=== PATIENT | male | born 1955 | race Caucasian/White ===

== ENCOUNTER 2019-09-01 02:31 | Emergency (ER) | payer BC ==
--- NOTE | 2019-09-01 03:03 | EDM.PDOC ---
ED HPI GENERAL MEDICAL PROBLEM - General Chief Complaint: Chest Pain Stated Complaint: CHEST PAIN Time Seen by Provider: 09/01/19 02:40 Source of Information: Reports: Patient, Family () History Limitations: Reports: No Limitations - History of Present Illness INITIAL COMMENTS - FREE TEXT/NARRATIVE: Mr. Hunter is a very pleasant 64-year-old man with a past medical history significant for hypertension, dyslipidemia, GERD, anxiety, degenerative disc disease, and coronary artery disease, status post a total of 5 coronary artery stents (3+1+1), with the most recent stent being placed about one year ago. To the patient's knowledge, he has not actually suffered an PR in the past, insofar as his cardiac enzymes have never been elevated, and, to the patient's knowledge, his ECGs have never been remarkable. Due to side effects, he is only partially compliant with his statin. The patient states that he has been feeling poorly for the past 2 weeks, including nausea, watery diarrhea, muscle aches, neck ache, headaches, and numbness of his feet. No recent fever, and he denies increased thirst or increased urine output. The patient now presents to the ED stating that he has been experiencing central chest pressure since around 21:00 last evening, then developed left bicep tightness around 01:00 this morning. He states that his chest pressure radiates up into his neck and down to his epigastrium. He states that his current symptoms are the same as those that resulted in him receiving coronary stents in the past. The patient's PCP is Dr. Nicolas Olmstead. His Assistant Professor is Dr. Jin Perkins. His [employer] Plasma Etcher/pain credit analysis manager is Dr. Manuel Herbert. Left Chest Pain Score (Numeric/FACES): 4 - Related Data Allergies Allergy/AdvReac Type Severity Reaction Status Date / Time No Known Allergies Allergy Verified 07/06/19 13:18 Home Meds: Home Meds Aspirin [Children's Aspirin] 81 mg PO DAILY 07/06/19 [History] Baclofen 10 mg PO DAILY PRN 07/06/19 [History] Clopidogrel Bisulfate [Clopidogrel] 75 mg PO DAILY 07/06/19 [History] Ezetimibe 10 mg PO DAILY 07/06/19 [History] LORazepam 0.5 mg PO BID PRN 07/06/19 [History] Losartan Potassium 50 mg PO DAILY 07/06/19 [History] Metoprolol Succinate 12.5 mg PO BID 07/06/19 [History] Nitroglycerin 0.4 mg SL ASDIRECTED 07/06/19 [History] Pantoprazole Sodium 40 mg PO BID 07/06/19 [History] Pitavastatin Calcium [Livalo] 1 mg PO DAILY 07/06/19 [History] Zolpidem Tartrate 5 mg PO BEDTIME PRN 07/06/19 [History] Ondansetron [Zofran ODT] 4 mg PO Q6H PRN #20 tab.dis 07/11/19 [Rx] Simethicone [Gas Relief] 80 mg PO BID #15 tab.chew 07/11/19 [Rx] Past Medical History HEENT History: Reports: Impaired Vision Other HEENT History: wears glasses Cardiovascular History: Reports: CAD, High Cholesterol, Hypertension Gastrointestinal History: Reports: GERD Genitourinary History: Reports: Chronic Renal Insuffiency Musculoskeletal History: Reports: Back Pain, Chronic (2 DDD), Neck Pain, Chronic Psychiatric History: Reports: Anxiety, Depression, Other (See Below) (Insomnia) - Past Surgical History HEENT Surgical History: Reports: Tonsillectomy Cardiovascular Surgical History: Reports: Coronary Artery Stent (x 5) GI Surgical History: Reports: Appendectomy, Colonoscopy (x 2), EGD (x 2), Other (See Below) (Exploratory laparotomy) Dermatological Surgical History: Reports: Skin Graft Social & Family History - Tobacco Use Smoking Status *Q: Former Smoker Years of Tobacco use: 23 Packs/Tins Daily: 3 Month/Year Tobacco Last Used: Quit 1994 - Caffeine Use Caffeine Use: Reports: Coffee - Alcohol Use Alcohol Use History: Yes Alcohol Use Frequency: Socially - Recreational Drug Use Recreational Drug Use: No - Living Situation & Occupation Living situation: Reports: , with Spouse Occupation: Employed (Fire customer service agent) ED ROS GENERAL - Review of Systems Review Of Systems: Comprehensive ROS is negative, except as noted in HPI. ED EXAM, GENERAL - Physical Exam Exam: See Below Exam Limited By: No Limitations General Appearance: Alert, WD/WN, No Apparent Distress, Anxious Eye Exam: Bilateral Eye: EOMI, Normal Inspection Ears: Normal External Exam, Hearing Grossly Normal Nose: Normal Inspection Throat/Mouth: Normal Inspection, Normal Lips, Normal Voice, No Airway Compromise Head: Atraumatic, Normocephalic Neck: Normal Inspection, Full Range of Motion Respiratory/Chest: No Respiratory Distress, Lungs Clear, Normal Breath Sounds, No Accessory Muscle Use, Chest Non-Tender Cardiovascular: Normal Peripheral Pulses, Regular Rate, Rhythm, No Edema, No Gallop, No JVD, No Murmur, No Rub Peripheral Pulses: 4+: Radial (L), Radial (R) GI/Abdominal: Normal Bowel Sounds, Soft, Non-Tender (including the epigastrium) , No Organomegaly, No Distention, No Abnormal Bruit, No Mass (Male) Exam: Deferred Rectal (Males) Exam: Deferred Back Exam: Normal Inspection, Full Range of Motion, NT Extremities: Normal Inspection, Normal Range of Motion, No Pedal Edema, Normal Capillary Refill Neurological: Alert, Oriented, Normal Cognition, No Motor/Sensory Deficits Psychiatric: Anxious Skin Exam: Warm, Intact, Normal Color, No Rash, Diaphoretic (mild) EKG INTERPRETATION EKG Date: 09/01/19 Time: 02:35 Rhythm: NSR (w/ single PVC) Rate (Beats/Min): 76 [place]: Normal P-Wave: Present QRS: Normal ST-T: Normal QT: Normal Comparison: No Change (07/20/2015) Course - Vital Signs Last Recorded V/S: Last Vital Signs Temp 35.9 C 09/01/19 02:36 Pulse 68 09/01/19 04:40 Resp 14 09/01/19 02:36 BP 124/97 H 09/01/19 04:40 Pulse Ox 100 09/01/19 02:36 - Orders/Labs/Meds Orders: Active Orders 24 hr Category Date Time Status EKG Documentation Completion [RC] STAT Care 09/01/19 02:57 Active Chest 2V [CR] Stat Exams 09/01/19 02:57 Taken Nitroglycerin/D5W [Nitroglycerin 25 MG/D5W 250 ML] Med 09/01/19 04:30 Active 25 mg in 250 ml IV TITRATE Medication Orders Nitroglycerin/Dextrose (Nitroglycerin 25 Mg/D5w 250 Ml) 25 mg in 250 mls @ 3 mls/hr IV TITRATE ALEK; Protocol Last Admin: 09/01/19 04:47 Dose: 5 mcg/min, 3 mls/hr Labs: Laboratory Tests 0109/01/19 09/01/19 Range/Units 03:10 03:10 03:10 WBC 4.97 (4.23-9.07) K/mm3 RBC 4.32 L (4.63-6.08) M/mm3 Hgb 13.2 L D (13.7-17.5) gm/dl Hct 38.6 L (40.1-51.0) % MCV 89.4 (79.0-92.2) fl MCH 30.6 (25.7-32.2) pg MCHC 34.2 (32.2-35.5) g/dl RDW Std Deviation 40.0 (35.1-43.9) fL Plt Count 234 (163-337) K/mm3 MPV 8.8 L (9.4-12.3) fl Neut % (Auto) 46.1 (34.0-67.9) % Lymph % (Auto) 39.4 (21.8-53.1) % [place] % (Auto) 10.9 (5.3-12.2) % Eos % (Auto) 2.8 (0.8-7.0) Baso % (Auto) 0.8 (0.1-1.2) % Neut # (Auto) 2.29 (1.78-5.38) K/mm3 Lymph # (Auto) 1.96 (1.32-3.57) K/mm3 [place] # (Auto) 0.54 (0.30-0.82) K/mm3 Eos # (Auto) 0.14 (0.04-0.54) K/mm3 Baso # (Auto) 0.04 (0.01-0.08) K/mm3 D-Dimer, Quantitative < 0.19 L (0.19-0.50) mg/L Sodium 141 (136-145) mEq/L Potassium 3.6 (3.5-5.1) mEq/L Chloride 105 (98-107) mEq/L Carbon Dioxide 22 (21-32) mEq/L Anion Gap 17.6 H (5-15) BUN 18 (7-18) mg/dL Creatinine 1.3 (0.7-1.3) mg/dL Est Cr Clr Drug Dosing 58.92 mL/min Estimated GFR (MDRD) 56 (>60) mL/min BUN/Creatinine Ratio 13.8 L (14-18) Glucose 119 H (80-115) mg/dL Calcium 8.7 (8.5-10.1) mg/dL Total Bilirubin 0.5 (0.2-1.0) mg/dL AST 26 (15-37) U/L ALT 53 (16-63) U/L Alkaline Phosphatase 60 (46-116) U/L Troponin I < 0.017 (0.00-0.056) ng/mL Total Protein 6.9 (6.4-8.2) g/dl Albumin 3.8 (3.4-5.0) g/dl Globulin 3.1 gm/dL Albumin/Globulin Ratio 1.2 (1-2) 09/01/19 Range/Units 04:35 WBC (4.23-9.07) K/mm3 RBC (4.63-6.08) M/mm3 Hgb (13.7-17.5) gm/dl Hct (40.1-51.0) % MCV (79.0-92.2) fl MCH (25.7-32.2) pg MCHC (32.2-35.5) g/dl RDW Std Deviation (35.1-43.9) fL Plt Count (163-337) K/mm3 MPV (9.4-12.3) fl Neut % (Auto) (34.0-67.9) % Lymph % (Auto) (21.8-53.1) % [place] % (Auto) (5.3-12.2) % Eos % (Auto) (0.8-7.0) Baso % (Auto) (0.1-1.2) % Neut # (Auto) (1.78-5.38) K/mm3 Lymph # (Auto) (1.32-3.57) K/mm3 [place] # (Auto) (0.30-0.82) K/mm3 Eos # (Auto) (0.04-0.54) K/mm3 Baso # (Auto) (0.01-0.08) K/mm3 D-Dimer, Quantitative (0.19-0.50) mg/L Sodium (136-145) mEq/L Potassium (3.5-5.1) mEq/L Chloride (98-107) mEq/L Carbon Dioxide (21-32) mEq/L Anion Gap (5-15) BUN (7-18) mg/dL Creatinine (0.7-1.3) mg/dL Est Cr Clr Drug Dosing mL/min Estimated GFR (MDRD) (>60) mL/min BUN/Creatinine Ratio (14-18) Glucose (80-115) mg/dL Calcium (8.5-10.1) mg/dL Total Bilirubin (0.2-1.0) mg/dL AST (15-37) U/L ALT (16-63) U/L Alkaline Phosphatase (46-116) U/L Troponin I < 0.017 (0.00-0.056) ng/mL Total Protein (6.4-8.2) g/dl Albumin (3.4-5.0) g/dl Globulin gm/dL Albumin/Globulin Ratio (1-2) Meds: Medications Generic Name Dose Route Start Last Admin Trade Name Freq PRN Reason Stop Dose Admin Nitroglycerin/Dextrose 25 mg in 250 mls @ 3 mls/hr 09/01/19 04:30 09/01/19 04 :47 Nitroglycerin 25 Mg/D5w 250 Ml IV 5 mcg/min TITRATE ALEK 3 mls/hr Administration Protocol 5 MCG/MIN Discontinued Medications Generic Name Dose Route Start Last Admin Trade Name Freq PRN Reason Stop Dose Admin Hydromorphone HCl 1 mg 09/01/19 03:07 09/01/19 03:37 Dilaudid IVPUSH 09/01/19 03:08 1 mg ONETIME ONE Administration Metoprolol Tartrate 5 mg 09/01/19 03:08 09/01/19 03:42 Lopressor IVPUSH 09/01/19 03:09 5 mg ONETIME ONE Administration Metoprolol Tartrate 5 mg 09/01/19 04:21 09/01/19 04:40 Lopressor IVPUSH 09/01/19 04:22 5 mg ONETIME ONE Administration Ondansetron HCl 4 mg 09/01/19 03:07 09/01/19 03:34 Zofran IVPUSH 09/01/19 03:08 4 mg ONETIME ONE Administration - Re-Assessments/Exams Free Text/Narrative Re-Assessment/Exam: 09/01/19 02:58 The patient's presentation is very concerning for angina, particularly since his symptoms are the same as prior presentations (at other facilities) that resulted in the patient receiving coronary artery stents. The patient's ECG, however, does not show any acute ischemic changes or even T-wave inversions despite him having active chest pain. This may be consistent, however, as the patient reports that he does not believe that he has ever had an elevated cardiac enzyme or PR. It is not clear to me, however, what would have prompted his Assistant Professor to have taken him to the [employer] [facility] in the past, with a negative workup. For today's purposes, I have ordered a standard cardiac evaluation, and will be calling [place] no matter what the results. In the meantime, the patient will be given some IV Dilaudid, IV Zofran, and IV Lopressor. 09/01/19 04:03 2-view chest radiograph appears to be grossly normal. The cardiac silhouette is within normal limits. No pulmonary vascular congestion. No pleural effusions. No focal infiltrate. No pneumothorax. Formal read per the Radiologist pending. 09/01/19 04:05 I have pushed the chest x-ray images to [facility]. 09/01/19 04:06 The patient's CBC is remarkable for an H/H slightly depressed at 13.2/38.6, with the remainder of his CBC being unremarkable. His CMP is remarkable for an anion gap slightly elevated at 17.6, but with a normal bicarbonate of 22. His blood glucose is mildly elevated at 119, with the remainder of his CMP being normal. His troponin is undetectably low. His D-dimer is undetectably low. I will contact [facility] Call. 09/01/19 04:27 Case discussed with Chelsea at [facility] One call at 04:09. Case then discussed with Dr. Patterson, Assistant Professor at [facility], at 04 :14. He agreed that the patient should be transferred, however, they do not have a bed available at this time. We agreed that the patient would be kept here in the ED until a bed becomes available. They will notify us when one becomes available. In the meantime, he does not object to my continuing to give the patient Lopressor, and suggested that I give him a low dose glycerin drip. He had no other recommendations at this time. The above was discussed with the patient and his , who are agreeable. In addition to additional Lopressor and the nitroglycerin drip, I have also ordered a repeat troponin. 09/01/19 04:[address] [facility] that another option would be to have the patient transferred to their ED and wait in their ED until a bed becomes available. This was discussed with the patient, and he would actually prefer that. 09/01/19 04:[address] Ingram, Emergency Physician at [facility], at 04:39. He accepted the patient for transfer to their ED. Departure - Departure Time of Disposition: 04:42 Disposition: DC/Tfer to Acute Hospital 02 Reason for Transfer *Q: Other Condition: Good Clinical Impression: Chest pressure Referrals: Nicolas Moran MD [Primary Care Provider] - Jin Perkins MD [Ordering Only Provider] - Manuel Herbert MD [Ordering Only Provider] - Forms: ED Department Discharge Sepsis Event Note - Evaluation Sepsis Screening Result: No Definite Risk - Focused Exam Vital Signs: Vital Signs Temp Pulse Pulse Resp BP BP Pulse Ox 09/01/19 04:40 68 124/97 H 09/01/19 03:42 81 120/89 09/01/19 02:36 35.9 C 79 14 140/93 H 100 Date Exam was Performed: 09/01/19 Time Exam was Performed: 05:24 - My Orders Last 24 Hours: My Active Orders 09/01/19 02:57 EKG Documentation Completion [RC] STAT Chest 2V [CR] Stat 09/01/19 04:30 Nitroglycerin/D5W [Nitroglycerin 25 MG/D5W 250 ML] 25 mg in 250 ml IV TITRATE - Assessment/Plan Last 24 Hours: My Active Orders 09/01/19 02:57 EKG Documentation Completion [RC] STAT Chest 2V [CR] Stat 09/01/19 04:30 Nitroglycerin/D5W [Nitroglycerin 25 MG/D5W 250 ML] 25 mg in 250 ml IV TITRATE
[2019-09-01] MEDS ORDERED: Ondansetron 4 MG/2 ML SDV IVPUSH ONE (03:07)
[2019-09-01] MEDS ORDERED: HYDROmorphone 1 MG/ML Syringe IVPUSH ONE (03:07)
[2019-09-01] MEDS ORDERED: Metoprolol Tartrate 5 MG/5 ML SDV IVPUSH ONE ×2 (03:08→04:21)
[2019-09-01] MEDS ORDERED: Nitroglycerin/D5W 25 MG/250 ML BOTTLE IV SCH (04:30)
[2019-09-01 04:43] VITALS: BP 124/97; PULSE 68
--- NOTE | 2019-09-01 07:34 | CR ---
Chest: Two views of the chest were obtained. Comparison: Prior chest x-ray of 07/20/15. Heart size and mediastinum are normal. Lungs are clear. Bony structures show slight degenerative change within the spine. Impression: 1. Nothing acute is seen on two-view chest x-ray. Diagnostic code #1 This report was dictated in [place] Standard Time
== END 2019-09-01 05:20 ==
LOC: JD.ED 02:31
DX: R07.89 Other chest pain (principal); I12.9 Hypertensive chronic kidney disease with stage 1 through stage 4 chronic kidney disease, or unspecified chronic kidney disease; N18.9 Chronic kidney disease, unspecified; Z87.891 Personal history of nicotine dependence; Z79.82 Long term (current) use of aspirin
CPT/HCPCS: 36415; 71046; 80053; 84484; 85025; 85379; 93005; 96365; 96375; 99285; J1170; J2405; J3490; 93010; 96376

== ENCOUNTER 2021-03-02 19:09 | Emergency (ER) | payer BC ==
[2021-03-02 19:23] VITALS: BP 140/92; PULSE 81
--- NOTE | 2021-03-02 19:35 | EDM.PDOC ---
ED HPI GENERAL MEDICAL PROBLEM - General Chief Complaint: Upper Extremity Injury/Pain Stated Complaint: INJURIED HANDS FELL ON BOAT RAMP IN [place] Time Seen by Provider: 03/02/21 19:25 Source of Information: Reports: Patient, RN Notes Reviewed History Limitations: Reports: No Limitations - History of Present Illness INITIAL COMMENTS - FREE TEXT/NARRATIVE: Patient is a 65-year-old male who presents to the ER for a left wrist injury and a right hand injury. Patient was loading his boat, in [place] and the dock was somewhat slimy, and he ended up slipping on the dock. He caught himself with an outstretched left wrist, and then landed on his right hand. He is having pain in his left wrist, and he is not been able to move his wrist in any range of motion at all without having extreme pain. He does have some pain in his right hand, mostly to his right pinky and some soreness to his right wrist as well. He did not take any pain medications prior to coming to the ER. He has not had any injuries to these area prior to today's injury. Patient denies any other sick-like symptoms, fever/chills, cough/shortness of breath, nausea/vomiting/diarrhea. Left Wrist Pain Score (Numeric/FACES): 5 - Related Data Allergies Allergy/AdvReac Type Severity Reaction Status Date / Time No Known Allergies Allergy Verified 03/02/21 19:23 Home Meds: Home Meds Clopidogrel Bisulfate [Clopidogrel] 75 mg PO DAILY 07/06/19 [History] Ezetimibe 10 mg PO DAILY 07/06/19 [History] LORazepam 0.5 mg PO BID PRN 07/06/19 [History] Metoprolol Succinate 12.5 mg PO BID 07/06/19 [History] Nitroglycerin 0.4 mg SL ASDIRECTED 07/06/19 [History] Pantoprazole Sodium 40 mg PO BID 07/06/19 [History] Zolpidem Tartrate 5 mg PO BEDTIME PRN 07/06/19 [History] Acetaminophen/oxyCODONE [Percocet 325-5 MG] 1 each PO Q6H PRN #20 tab 03/02/21 [Rx] Past Medical History HEENT History: Reports: Impaired Vision Other HEENT History: wears glasses Cardiovascular History: Reports: CAD, High Cholesterol, Hypertension Respiratory History: Reports: None Other Respiratory History: wears CPAP Gastrointestinal History: Reports: GERD Genitourinary History: Reports: Chronic Renal Insuffiency Other Genitourinary History: kidney stones, CKD TELE[employer] MAINTENANCE MECHANIC History: Reports: None Musculoskeletal History: Reports: Back Pain, Chronic, Neck Pain, Chronic Other Musculoskeletal History: degerenative disc disease Neurological History: Reports: Migraines Psychiatric History: Reports: Anxiety, Depression, Other (See Below) Other Psychiatric History: insomnia, defect Endocrine/Metabolic History: Reports: None Hematologic History: Reports: None Immunologic History: Reports: None Oncologic (Cancer) History: Reports: None Dermatologic History: Reports: None - Past Surgical History HEENT Surgical History: Reports: Tonsillectomy Cardiovascular Surgical History: Reports: Coronary Artery Stent Respiratory Surgical History: Reports: None GI Surgical History: Reports: Appendectomy, Colonoscopy, EGD, Other (See Below) Male Surgical History: Reports: None Endocrine Surgical History: Reports: None Neurological Surgical History: Reports: None Musculoskeletal Surgical History: Reports: None Oncologic Surgical History: Reports: None Dermatological Surgical History: Reports: Skin Graft Social & Family History - Tobacco Use Tobacco Use Status *Q: Never Tobacco User Second Hand Smoke Exposure: No - Caffeine Use Caffeine Use: Reports: Coffee - Recreational Drug Use Recreational Drug Use: No - Living Situation & Occupation Living situation: Reports: , with Spouse Occupation: Employed (Fire diesel service apprentice) Review of Systems - Review of Systems Review Of Systems: Comprehensive ROS is negative, except as noted in HPI. ED EXAM, GENERAL - Physical Exam Exam: See Below Exam Limited By: No Limitations General Appearance: Alert, WD/WN, No Apparent Distress Respiratory/Chest: No Respiratory Distress, Lungs Clear, Normal Breath Sounds, No Accessory Muscle Use, Chest Non-Tender Cardiovascular: Normal Peripheral Pulses, Regular Rate, Rhythm, No Edema Peripheral Pulses: 2+: Radial (L), Radial (R) Extremities: Normal Capillary Refill, Limited Range of Motion (of left wrist d/t pain), Other (there is some bruising to the right pinky) Neurological: Alert, Oriented, Normal Cognition, No Motor/Sensory Deficits Psychiatric: Normal Affect, Normal Mood Skin Exam: Warm, Dry, Intact, Normal Color, No Rash, Ecchymosis (to right pinky finger) ED TRAUMA EXTREMITY PROCEDURES - Splinting Left Upper Extremity Splint Site: left wrist Pre-Procedure NV Status: Normal Post-Procedure NV Status: Normal Splint Material: Fiberglass Splint Design: Gutter (ulnar gutter short arm) Applied & Form Fitted By: Provider, Nurse Provider Post-Splint Application NV Check: NV Status Normal, Good Position Complications: No Course - Vital Signs Last Recorded V/S: Last Vital Signs Temp 98.9 F 03/02/21 19:22 Pulse 81 03/02/21 19:22 Resp 20 03/02/21 19:22 BP 140/92 H 03/02/21 19:22 Pulse Ox 98 03/02/21 19:22 - Orders/Labs/Meds Orders: Active Orders 24 hr Category Date Time Status Hand Comp Min 3V Rt [CR] Stat Exams 03/02/21 19:29 Ordered Wrist Comp Min 3V Lt [CR] Stat Exams 03/02/21 19:29 Ordered DME for Discharge [COMM] Routine Oth 03/02/21 21:57 Ordered Meds: Medications Discontinued Medications Generic Name Dose Route Start Last Admin Trade Name Jitendra PRN Reason Stop Dose Admin Hydromorphone HCl 1 mg 03/02/21 21:12 03/02/21 21:30 Hydromorphone 1 Mg/Ml Syringe IM 03/02/21 21:13 1 mg ONETIME ONE Administration - Re-Assessments/Exams Free Text/Narrative Re-Assessment/Exam: 03/02/21 19:35 Patient presents to the ER for left wrist injury and his right hand injury, we will go ahead and get x-rays of both areas for evaluation. It does appear as if he may have broken his left wrist just on exam alone. He is not requesting anything for pain meds at this time. But will let us know if he should require any pain medication. 03/02/21 21:12 X-rays have been done, hand x-ray does not demonstrate any obvious fracture or bony abnormality. Left wrist x-ray does demonstrate an impacted, slightly posterior angulation. Patient will have splinting done and I have ordered 1 mg Dilaudid for pain management. Departure - Departure Time of Disposition: 21:14 Disposition: Home, Self-Care 01 Condition: Good Clinical Impression: Distal radius fracture, left Qualifiers: Encounter type: initial encounter Fracture type: closed Fracture morphology: unspecified fracture morphology Qualified Code(s): S52.502A - Unspecified fracture of the lower end of left radius, initial encounter for closed fracture - Discharge Information *PRESCRIPTION DRUG MONITORING PROGRAM REVIEWED*: Yes *COPY OF PRESCRIPTION DRUG MONITORING REPORT IN PATIENT EDGARD: No Prescriptions: Acetaminophen/oxyCODONE [Percocet 325-5 MG] 1 each PO Q6H PRN #20 tab PRN Reason: Pain Instructions: Cast or Splint Care, Adult, [id number], Wrist Fracture Treated With Immobilization, [id number] Referrals: Nicolas Moran MD [Primary Care Provider] - Forms: ED Department Discharge, ED Return to Work/School Form Additional Instructions: You have been evaluated in the ED for your left wrist and right hand injuries. Your x-ray demonstrated a fracture of your distal radius of your left wrist. Your hand x-ray did not demonstrate any acute fracture or other bony abnormalities apparent at tonight's visit. Please use ice as tolerated to the affected area. You may elevate the affected area to provide further relief from swelling. You may take Tylenol 500 mg or ibuprofen 600mg q6 hrs for pain relief. Please do so until you have a tolerable level of pain with activity. Do not exceed 4000mg Tylenol, Do not exceed 3200mg ibuprofen in a 24 hour time period. You were given a prescription for a strong pain medication, Oxycodone/acetaminophen 5/325, please take 1 tab every 6 hours as needed for pain not relieved by Tylenol or ibuprofen alone. Please note this does contain Tylenol in it, so do not take more than 4000 mg in a 24-hour time span. These medications can be addictive, so please take as few as possible to achieve adequate pain control. These meds can also be quite constipating, recommend that you increase your oral fluid intake and take a stool softener like MiraLAX while taking these medications. Please call Ortho for follow-up and further evaluation Dr. Anderson is our orthopedic surgeon, his office number is [phone]. Please call and set up an appointment as soon as possible for further management. Please return to ED if your symptoms should change or worsen. Sepsis Event Note (ED) - Evaluation Sepsis Screening Result: No Definite Risk - Focused Exam Vital Signs: Vital Signs Temp Pulse Resp BP Pulse Ox 03/02/21 19:22 98.9 F 81 20 140/92 H 98 - My Orders Last 24 Hours: My Active Orders 03/02/21 19:29 Hand Comp Min 3V Rt [CR] Stat Wrist Comp Min 3V Lt [CR] Stat 03/02/21 21:57 DME for Discharge [COMM] Routine - Assessment/Plan Last 24 Hours: My Active Orders 03/02/21 19:29 Hand Comp Min 3V Rt [CR] Stat Wrist Comp Min 3V Lt [CR] Stat 03/02/21 21:57 DME for Discharge [COMM] Routine
[2021-03-02] MEDS ORDERED: HYDROmorphone 1 MG/ML Syringe IM ONE (21:12)
--- NOTE | 2021-03-03 09:32 | CR ---
Left wrist: 3 views left wrist were obtained. Comparison: Prior left wrist exam of 07/25/19. Acute fracture is identified within the distal radius involving mostly the metaphysis. There is posterior impaction as well as mild posterior displacement and dorsal tilt of the distal radial articular margin. Minimal irregularity within the ulnar styloid process is seen probably due to minimal avulsion injury. Soft tissue swelling is noted. Mild degenerative change is scattered within the hand. Impression: 1. Mildly displaced and angulated distal left radial fracture with questionable small fracture within the ulnar styloid process. 2. Degenerative change within the hand. 3. Soft tissue swelling. Diagnostic code #3
--- NOTE | 2021-03-03 09:33 | CR ---
Right hand: 3 views of the right hand were obtained. Comparison: No prior hand exam is available. Scattered joint space narrowing is seen within the MCP, DIP and PIP joints. Joint space narrowing is also noted within the thumb. Small calcification is noted within or next to the triangular cartilage within the wrist which appears to be old. No acute fracture or dislocation is seen. Impression: 1. Diffuse degenerative change as noted above. 2. Nothing acute is seen on right hand exam. Diagnostic code #2
== END 2021-03-02 22:10 | disposition home or self-care (01) ==
LOC: JD.ED 19:09
DX: S52.502A Unspecified fracture of the lower end of left radius, initial encounter for closed fracture (principal); S60.051A Contusion of right little finger without damage to nail, initial encounter; I25.10 Atherosclerotic heart disease of native coronary artery without angina pectoris; I12.9 Hypertensive chronic kidney disease with stage 1 through stage 4 chronic kidney disease, or unspecified chronic kidney disease; N18.9 Chronic kidney disease, unspecified; K21.9 Gastro-esophageal reflux disease without esophagitis; Z79.02 Long term (current) use of antithrombotics/antiplatelets; Z79.899 Other long term (current) drug therapy; W01.0XXA Fall on same level from slipping, tripping and stumbling without subsequent striking against object, initial encounter
CPT/HCPCS: 29125; 73110; 73130; 96372; 99283; J1170

== ENCOUNTER 2021-05-24 11:17 | Emergency (ER) | payer BC ==
[2021-05-24 11:38] VITALS: BP 133/85; PULSE 81
--- NOTE | 2021-05-24 14:09 | CR ---
Chest: Frontal view of the chest was obtained. Comparison: Prior chest x-ray of 05/01/21. Heart size and mediastinum are normal. Lungs are clear with no acute parenchymal change. Bony structures show nothing acute. Impression: 1. Nothing acute is seen on frontal chest x-ray. Diagnostic code #1
--- NOTE | 2021-05-24 16:09 | EDM.PDOC ---
ED HPI GENERAL MEDICAL PROBLEM - General Chief Complaint: Respiratory Problem Stated Complaint: SOB WAS COVID Time Seen by Provider: 05/24/21 12:30 Source of Information: Reports: Patient History Limitations: Reports: No Limitations - History of Present Illness INITIAL COMMENTS - FREE TEXT/NARRATIVE: Patient is a 65-year-old male with a past medical history of coronary artery d isease presenting with a chief complaint of shortness of breath and chest pressure. Patient was referred by outpatient clinic for the symptoms. Patient states he has been experiencing symptoms intermittently for the past 1 week. Patient had COVID-19 infection about 1 month ago. He been doing better until about 1 week ago. He states his symptoms seem to occur primarily with exertion. Symptoms do improve with rest. Patient reports chest pressure in the substernal area with radiation to the left shoulder. Denies any cough, fevers, nausea, vomiting, diaphoresis. Symptoms do not occur at rest. Patient has not taken any medications symptoms. He states nitroglycerin makes him extremely hypotensive. Middle Chest Pain Score (Numeric/FACES): 2 - Related Data Allergies Allergy/AdvReac Type Severity Reaction Status Date / Time No Known Allergies Allergy Verified 05/24/21 11:37 Home Meds: Home Meds Clopidogrel Bisulfate [Clopidogrel] 75 mg PO DAILY 07/06/19 [History] Ezetimibe 10 mg PO DAILY 07/06/19 [History] LORazepam 0.5 mg PO BID PRN 07/06/19 [History] Metoprolol Succinate 12.5 mg PO BID 07/06/19 [History] Nitroglycerin 0.4 mg SL ASDIRECTED 07/06/19 [History] Pantoprazole Sodium 40 mg PO BID 07/06/19 [History] Zolpidem Tartrate 5 mg PO BEDTIME PRN 07/06/19 [History] Acetaminophen/oxyCODONE [Percocet 325-5 MG] 1 each PO Q6H PRN #20 tab 03/02/21 [Rx] Dulaglutide [Trulicity] 1.5 mg SUBCUT WEEKLY 05/24/21 [History] Past Medical History HEENT History: Reports: Impaired Vision Other HEENT History: wears glasses Cardiovascular History: Reports: CAD, High Cholesterol, Hypertension Respiratory History: Reports: None Other Respiratory History: wears CPAP Gastrointestinal History: Reports: GERD Genitourinary History: Reports: Chronic Renal Insuffiency Other Genitourinary History: kidney stones, CKD [employer] History: Reports: None Musculoskeletal History: Reports: Back Pain, Chronic, Neck Pain, Chronic Other Musculoskeletal History: degerenative disc disease Neurological History: Reports: Migraines Psychiatric History: Reports: Anxiety, Depression, Other (See Below) Other Psychiatric History: insomnia, defect Endocrine/Metabolic History: Reports: None Hematologic History: Reports: None Immunologic History: Reports: None Oncologic (Cancer) History: Reports: None Dermatologic History: Reports: None - Infectious Disease History Infectious Disease History: Reports: Novel Coronavirus - Past Surgical History HEENT Surgical History: Reports: Tonsillectomy Cardiovascular Surgical History: Reports: Coronary Artery Stent Respiratory Surgical History: Reports: None GI Surgical History: Reports: Appendectomy, Colonoscopy, EGD, Other (See Below) Male Surgical History: Reports: None Endocrine Surgical History: Reports: None Neurological Surgical History: Reports: None Musculoskeletal Surgical History: Reports: None Oncologic Surgical History: Reports: None Dermatological Surgical History: Reports: Skin Graft Social & Family History - Tobacco Use Tobacco Use Status *Q: Never Tobacco User Second Hand Smoke Exposure: No - Caffeine Use Caffeine Use: Reports: Coffee - Living Situation & Occupation Living situation: Reports: , with Spouse Occupation: Employed (Fire biomedical service engineer) ED ROS GENERAL - Review of Systems Review Of Systems: See Below Free Text/Narrative/Comment: In addition to that documented in the HPI above, the additional ROS was obtained: Constitutional: Denies fevers or chills Eyes: Denies vision changes ENMT: Denies sore throat CV: Per HPI Resp: Per HPI GI: Denies vomiting or diarrhea : Denies painful urination MSK: Denies recent trauma Skin: Denies new rashes Neuro: Denies new numbness or tingling or weakness Endocrine: Denies unexpected weight loss Heme: Denies bleeding disorders ED EXAM, GENERAL - Physical Exam Exam: See Below Free Text/Narrative:: I have reviewed the triage vital signs Const: Well nourished, well developed, appears stated age Eyes: Pupils Equal and reactive to light bilaterally, no conjunctival injection HENT: No signs of trauma or swelling, Neck supple without meningismus CV: Regular Rate Rhythm, Warm, well-perfused extremities RESP: Unlabored respiratory effort GI: soft, non-tender, non-distended, no masses MSK: No gross deformities appreciated Skin: Warm, dry. No rashes Neuro: Alert, ichthyology teacher II-XII grossly intact. Sensation and motor function of extremities grossly intact. Psych: Appropriate mood and affect. Course - Vital Signs Last Recorded V/S: Last Vital Signs Temp 36.9 C 05/24/21 11:32 Pulse 81 05/24/21 11:32 Resp 20 05/24/21 11:32 BP 133/85 05/24/21 11:32 Pulse Ox 100 05/24/21 11:32 - Orders/Labs/Meds Labs: Laboratory Tests 05/24/21 05/24/21 05/24/21 Range/Units 12:20 12:20 12:20 WBC 5.94 (4.23-9.07) K/mm3 RBC 4.26 L (4.63-6.08) M/mm3 Hgb 13.0 L (13.7-17.5) gm/dl Hct 39.4 L (40.1-51.0) % MCV 92.5 H (79.0-92.2) fl MCH 30.5 (25.7-32.2) pg MCHC 33.0 (32.2-35.5) g/dl RDW Std Deviation 42.9 (35.1-43.9) fL Plt Count 205 D (163-337) K/mm3 MPV 9.1 L (9.4-12.3) fl Neut % (Auto) 55.9 (34.0-67.9) % Lymph % (Auto) 33.2 (21.8-53.1) % Randall % (Auto) 8.9 (5.3-12.2) % Eos % (Auto) 1.3 (0.8-7.0) Baso % (Auto) 0.5 (0.1-1.2) % Neut # (Auto) 3.32 (1.78-5.38) K/mm3 Lymph # (Auto) 1.97 (1.32-3.57) K/mm3 Randall # (Auto) 0.53 (0.30-0.82) K/mm3 Eos # (Auto) 0.08 (0.04-0.54) K/mm3 Baso # (Auto) 0.03 (0.01-0.08) K/mm3 D-Dimer, Quantitative < 0.19 L (0.19-0.50) mg/L Sodium 138 (136-145) mEq/L Potassium 3.4 L (3.5-5.1) mEq/L Chloride 104 (98-107) mEq/L Carbon Dioxide 26 (21-32) mEq/L Anion Gap 11.4 (5-15) BUN 13 (7-18) mg/dL Creatinine 1.3 (0.7-1.3) mg/dL Est Cr Clr Drug Dosing 58.16 mL/min Estimated GFR (MDRD) 56 (>60) mL/min BUN/Creatinine Ratio 10.0 L (14-18) Glucose 98 (70-99) mg/dL Calcium 8.5 (8.5-10.1) mg/dL Total Bilirubin 0.5 (0.2-1.0) mg/dL AST 27 (15-37) U/L ALT 45 (16-63) U/L Alkaline Phosphatase 61 (46-116) U/L Troponin I < 0.017 (0.00-0.056) ng/mL Total Protein 7.1 (6.4-8.2) g/dl Albumin 3.8 (3.4-5.0) g/dl Globulin 3.3 gm/dL Albumin/Globulin Ratio 1.2 (1-2) 05/24/21 Range/Units 15:30 WBC (4.23-9.07) K/mm3 RBC (4.63-6.08) M/mm3 Hgb (13.7-17.5) gm/dl Hct (40.1-51.0) % MCV (79.0-92.2) fl MCH (25.7-32.2) pg MCHC (32.2-35.5) g/dl RDW Std Deviation (35.1-43.9) fL Plt Count (163-337) K/mm3 MPV (9.4-12.3) fl Neut % (Auto) (34.0-67.9) % Lymph % (Auto) (21.8-53.1) % Randall % (Auto) (5.3-12.2) % Eos % (Auto) (0.8-7.0) Baso % (Auto) (0.1-1.2) % Neut # (Auto) (1.78-5.38) K/mm3 Lymph # (Auto) (1.32-3.57) K/mm3 Randall # (Auto) (0.30-0.82) K/mm3 Eos # (Auto) (0.04-0.54) K/mm3 Baso # (Auto) (0.01-0.08) K/mm3 D-Dimer, Quantitative (0.19-0.50) mg/L Sodium (136-145) mEq/L Potassium (3.5-5.1) mEq/L Chloride (98-107) mEq/L Carbon Dioxide (21-32) mEq/L Anion Gap (5-15) BUN (7-18) mg/dL Creatinine (0.7-1.3) mg/dL Est Cr Clr Drug Dosing mL/min Estimated GFR (MDRD) (>60) mL/min BUN/Creatinine Ratio (14-18) Glucose (70-99) mg/dL Calcium (8.5-10.1) mg/dL Total Bilirubin (0.2-1.0) mg/dL AST (15-37) U/L ALT (16-63) U/L Alkaline Phosphatase (46-116) U/L Troponin I < 0.017 (0.00-0.056) ng/mL Total Protein (6.4-8.2) g/dl Albumin (3.4-5.0) g/dl Globulin gm/dL Albumin/Globulin Ratio (1-2) Departure - Departure Time of Disposition: 16:09 Disposition: Home, Self-Care 01 Clinical Impression: Chest pain - Discharge Information *PRESCRIPTION DRUG MONITORING PROGRAM REVIEWED*: Not Applicable *COPY OF PRESCRIPTION DRUG MONITORING REPORT IN PATIENT EDGARD: Not Applicable Instructions: Nonspecific Chest Pain, Adult, [id number] Referrals: Nicolas Moran MD [Primary Care Provider] - Forms: ED Department Discharge Additional Instructions: Avoid any strenuous activity including playing golf until you are seen by cardiology. Your appointment with Dr. Cobian Is on May 29 at 2 PM. Return to the emergency room immediately if your symptoms worsen, you develop symptoms at rest or of any other emergent concerns. Sepsis Event Note (ED) - Evaluation Sepsis Screening Result: No Definite Risk - Focused Exam Vital Signs: Vital Signs Temp Pulse Resp BP Pulse Ox 05/24/21 11:32 36.9 C 81 20 133/85 100 - Assessment/Plan Assessment:: Patient 65-year-old male presented to the emergency room with chief complaint of chest discomfort and shortness of breath. Patient asymptomatic while in the emergency department. Initial EKG demonstrates normal sinus rhythm with a rate of 72. Normal axis. T wave flattening in the lateral leads. Machine reports QTC of 569. However, using Bazett formula, patient's QTC is 351. Studies reviewed demonstrate no significant abnormality. Differential diagnosis considered include pulmonary embolism, ACS, aortic dissection, pneumonia. D-di nettie within normal limits. Serial troponins were negative. No evidence of widened mediastinum on chest x-ray. Patient remained asymptomatic while in the emergency room despite no additional treatments. At this point, patient is agreeable to have urgent outpatient follow-up with cardiology. Return precautions were discussed patient agrees with this plan.
== END 2021-05-24 16:20 | disposition home or self-care (01) ==
LOC: JD.ED 11:17
DX: R07.89 Other chest pain (principal); I25.10 Atherosclerotic heart disease of native coronary artery without angina pectoris; I12.9 Hypertensive chronic kidney disease with stage 1 through stage 4 chronic kidney disease, or unspecified chronic kidney disease; N18.9 Chronic kidney disease, unspecified; K21.9 Gastro-esophageal reflux disease without esophagitis; Z86.16 Personal history of COVID-19; Z79.02 Long term (current) use of antithrombotics/antiplatelets; Z79.899 Other long term (current) drug therapy
CPT/HCPCS: 36415; 71045; 71045-26; 80053; 84484; 85025; 85379; 93005; 99285-25

== ENCOUNTER 2022-07-10 06:52 | Day surgery (SDC) | payer BC ==
[2022-07-10] MEDS ORDERED: Propofol 200 MG/20 ML SDV ONE (07:25)
[2022-07-10] MEDS ORDERED: Midazolam 1 MG/ML 2 ML SDV ONE (07:26)
[2022-07-10] MEDS ORDERED: fentaNYL 100 MCG/2 ML SDV ONE (07:28)
[2022-07-10] MEDS ORDERED: Lidocaine 1% 5 ML VIAL ONE (07:29)
[2022-07-10] MEDS ORDERED: Lactated Ringers 1,000 ML IV SCH (07:30)
[2022-07-10] MEDS ORDERED: Lidocaine 1% with EPINEPHrine 1:100,000 10 ML MDV ONE (07:42)
[2022-07-10] MEDS ORDERED: Bupivacaine 0.5%/EPINEPHrine 1:200,000 50 ML MDV ONE (07:42)
[2022-07-10] MEDS ORDERED: Ondansetron 4 MG/2 ML SDV ONE (08:20)
[2022-07-10 09:10] VITALS: BP 121/81; PULSE 68
[2022-07-10] MEDS ORDERED: ceFAZolin 2 GM Vial ONE (09:58)
== END 2022-07-10 09:09 | disposition home or self-care (01) ==
LOC: JD.SDS 06:52
PROVIDERS: ATTEND Surgery
DX: R22.41 Localized swelling, mass and lump, right lower limb (principal); I25.10 Atherosclerotic heart disease of native coronary artery without angina pectoris; F41.9 Anxiety disorder, unspecified; F32.A Depression, unspecified; E78.00 Pure hypercholesterolemia, unspecified; G47.33 Obstructive sleep apnea (adult) (pediatric); K21.9 Gastro-esophageal reflux disease without esophagitis; I10 Essential (primary) hypertension; E11.9 Type 2 diabetes mellitus without complications; G43.909 Migraine, unspecified, not intractable, without status migrainosus; Z95.5 Presence of coronary angioplasty implant and graft; Z79.899 Other long term (current) drug therapy; Z86.16 Personal history of COVID-19; Z90.49 Acquired absence of other specified parts of digestive tract; Z98.890 Other specified postprocedural states; Z87.891 Personal history of nicotine dependence; Z79.82 Long term (current) use of aspirin
CPT/HCPCS: 27618; 36415; 80048; 85025; J0690; J2250; J2405; J2704; J3010; J3490; J7120; 00400

== ENCOUNTER 2024-10-08 18:55 | Emergency (ER) | payer MEDICARE, OTHER ==
[2024-10-08 19:17] VITALS: BP 137/88; PULSE 81
[2024-10-08] MEDS: Naproxen 500 MG Tab PO ONE (20:40)
== END 2024-10-08 21:43 | disposition left against medical advice (07) ==
LOC: JD.ED 18:55
DX: S92.511A Displaced fracture of proximal phalanx of right lesser toe(s), initial encounter for closed fracture (principal); S93.104A Unspecified dislocation of right toe(s), initial encounter; K21.9 Gastro-esophageal reflux disease without esophagitis; E11.22 Type 2 diabetes mellitus with diabetic chronic kidney disease; N18.9 Chronic kidney disease, unspecified; Z86.16 Personal history of COVID-19; Z90.49 Acquired absence of other specified parts of digestive tract; W23.1XXA Caught, crushed, jammed, or pinched between stationary objects, initial encounter
CPT/HCPCS: 28515; 73660; 99283; A9270; 28660

== ENCOUNTER 2025-07-31 08:16 | Emergency (ER) | payer MEDICARE, OTHER ==
[2025-07-31 09:51] LABS: BASOPHILS ABSOLUTE AUTO 0.1 K/mm3 (0.0-0.2); BASOPHILS PERCENT AUTO 1.3 % (0.0-1.0); EOSINOPHILS ABSOLUTE AUTO 0.1 K/mm3 (0.0-0.4); EOSINOPHILS PERCENT AUTO 2.2 % (0.0-6.0); IMMATURE GRAN ABSOLUTE AUTO 0.00 K/mm3 (0.00-0.05); IMMATURE GRAN PERCENT AUTO 0.0 % (0.0-0.4); LYMPHOCYTES ABSOLUTE AUTO 1.8 K/mm3 (1.0-4.8); LYMPHOCYTES PERCENT AUTO 39.1 % (24.0-44.0); MEAN PLATELET VOLUME 9.3 fl (9.4-12.4); MONOCYTES ABSOLUTE AUTO 0.4 K/mm3 (0.0-0.8); MONOCYTES PERCENT AUTO 9.2 % (0.0-8.0); NEUTROPHILS ABSOLUTE AUTO 2.2 K/mm3 (1.8-7.7); NEUTROPHILS PERCENT AUTO 48.2 % (41.0-71.0); NRBC ABSOLUTE 0.00 (0.00-0.02); NRBC PERCENT 0.0 % (0.0-0.2); PLATELET COUNT,PLT 203 K/mm3 (150-400); RED BLOOD CELL COUNT 4.64 M/mm3 (4.52-5.90); WHITE BLOOD CELL COUNT,WBC 4.55 K/mm3 (3.9-11.3)
[2025-07-31 10:01] LABS: A/G RATIO 1.2 (1-2); ALANINE AMINOTRANSFERASE,ALT 35.0 U/L (16-63); ASPARTATE AMNIOTRANSFERASE,AST 21.0 U/L (15-37); BILIRUBIN TOTAL 0.5 mg/dL (0.2-1.0); BLOOD UREA NITROGEN,BUN 15.0 mg/dL (7-18); CARBON DIOXIDE,CO2 23.0 mEq/L (21-32); CHLORIDE,CL 105.0 mEq/L (98-107); CREATININE 1.4 mg/dL (0.7-1.3); EST CRCL DRUG DOSING (CG) 47.87 mL/min; ESTIMATED GFR 55.0 mL/min (>60); GLUCOSE RANDOM 104.0 mg/dL (70-99); POTASSIUM,K 4.0 mEq/L (3.5-5.1); PROTEIN TOTAL,TP 7.1 g/dl (6.4-8.2); SODIUM,NA 140.0 mEq/L (136-145)
[2025-07-31] MEDS: Sodium Chloride 0.9% 10 ML Syringe FLUSH PRN (10:22)
[2025-07-31 16:10] VITALS: BP 141/97; PULSE 76
== END 2025-07-31 16:06 ==
LOC: JD.ED 08:16
DX: R07.2 Precordial pain (principal); K21.9 Gastro-esophageal reflux disease without esophagitis; E11.9 Type 2 diabetes mellitus without complications; Z90.49 Acquired absence of other specified parts of digestive tract; Z95.5 Presence of coronary angioplasty implant and graft; Z87.891 Personal history of nicotine dependence; Z79.899 Other long term (current) drug therapy
CPT/HCPCS: 36415; 71045; 80053; 83880; 84484; 85025; 93005; 96374; 99285; J2270